=== PATIENT | female | born 1935 | race Caucasian/White ===

== ENCOUNTER 2022-02-27 02:35 | Emergency (ER) | payer OTHER, BC ==
[~2022-02-27] VITALS: Ht 165.1 cm; Wt 44.9 kg
[2022-02-27 02:41] VITALS: BP 167/65
--- NOTE | 2022-02-27 02:42 | NUR ---
FELISHA LALA. TAKEN TO BED 1
[2022-02-27] MEDS ORDERED: NACL 0.9% 1,000 ML IV ONE (02:50)
[2022-02-27] MEDS ORDERED: ONDANSETRON 4 MG ODT PO ONE (02:50)
--- NOTE | 2022-02-27 02:54 | NUR ---
CONTACT INFO FOR PT BRISA AYALA PROVIDED
--- NOTE | 2022-02-27 02:55 | NUR ---
Patient lying in bed, A/Ox4, chest rise and fall symmetrical, no s/s of distress. Addendum: 02/27/22 at 0628 by [email or web address] Patient lying in bed, A/Ox4, chest rise and fall symmetrical, no s/s of distress, patient on monitor.
--- NOTE | 2022-02-27 03:07 | NUR ---
Dr. Melvin examining patient.
[2022-02-27 03:30] LABS: BASOPHILS # (AUTO) 0.1 K/uL (0.00-0.22); BASOPHILS % (AUTO) 0.8 % (0.0-2.0); EOSINOPHILS # (AUTO) 0.1 K/uL (0-0.4); HEMATOCRIT 34.7 % (36-48); HEMOGLOBIN 11.4 g/dL (12.0-16.0); LYMPHOCYTES % (AUTO) 15.3 % (20.5-51.1); MEAN CORPUSCULAR HEMOGLOBIN 30 pg (27-31); MEAN CORPUSCULAR HGB CONC 33 g/dL (33-37); MEAN CORPUSCULAR VOLUME 91.9 fL (80-94); MONOCYTES # (AUTO) 0.6 K/uL (0.8-1.0); MONOCYTES % (AUTO) 8.3 % (1.7-9.3); NEUTROPHILS # (AUTO) 4.9 K/uL (1.8-7.7); NEUTROPHILS % (AUTO) 73.6 % (42.2-75.2); PLATELET COUNT (AUTO) 271 K/uL (140-450); RED BLOOD CELL COUNT(AUTO) 3.78 MIL/uL (4.20-5.40); RED CELL DISTRIBUTION WIDTH 13.6 % (11.6-13.7); WHITE BLOOD COUNT (AUTO) 6.7 K/uL (4.8-10.8)
--- NOTE | 2022-02-27 03:39 | NUR ---
X-Ray at bedside.
[2022-02-27 03:54] LABS: ALBUMIN 3.2 g/dL (3.4-5.0); ASPARTATE AMINOTRANSFERASE 28 U/L (15-37); CARBON DIOXIDE 27.4 mmol/L (21-32); CHLORIDE 106 mmol/L (98-107); CREATININE 0.8 mg/dL (0.6-1.3); GLUCOSE 138 mg/dL (74-106); POTASSIUM 3.4 mmol/L (3.5-5.1); SODIUM SERUM 142 mmol/L (136-145); TOTAL BILIRUBIN 0.3 mg/dL (0.0-1.0); UREA NITROGEN, BLOOD 18 mg/dL (7-18)
--- NOTE | 2022-02-27 04:15 | NUR ---
Patient lying in bed, A/Ox4, chest rise and fall symmetrical, no s/s of distress. Addendum: 02/27/22 at 0628 by [email or web address] Patient lying in bed, A/Ox4, chest rise and fall symmetrical, no s/s of distress, patient on monitor.
[2022-02-27 04:58] LABS: APPEARANCE,URINE CLEAR (CLEAR); BILIRUBIN,URINE NEGATIVE (NEGATIVE); BLOOD, URINE NEGATIVE (NEGATIVE); COLOR,URINE YELLOW (YELLOW); LEUKOCYTE ESTERASE ,URINE NEGATIVE (NEGATIVE); NITRITE, URINE NEGATIVE (NEGATIVE); UGLUCOSE NEGATIVE (NEGATIVE)
--- NOTE | 2022-02-27 05:18 | NUR ---
Dr. Melvin examining patient.
[2022-02-27] MEDS ORDERED: MECLIZINE 25 MG TAB PO ONE (05:20)
--- NOTE | 2022-02-27 06:22 | NUR ---
Patient lying in bed, A/Ox4, chest rise and fall symmetrical, no s/s of distress. Addendum: 02/27/22 at 0628 by [email or web address] Patient lying in bed, A/Ox4, chest rise and fall symmetrical, no s/s of distress, patient on monitor.
--- NOTE | 2022-02-27 07:15 | NUR ---
Change of shift report given to AM shift nurse Guerda RN. AM shift nurse Guerda RN verbalized understanding of report, no further questions.
--- NOTE | 2022-02-27 07:40 | NUR ---
AYALA ROBERTS (son) [phone] Number no longer in service [phone] pt son states he will be coming to pick her up, informed to bring shoes and extra pair of pants. per facility, pt has hx of dementia and is unable to pick her up. per son, he is sole caregiver, report given to Aya at facility and son.
[2022-02-27 08:27] VITALS: BP 142/54
--- NOTE | 2022-02-27 08:33 | NUR ---
Patient discharged with v/s stable. Written and verbal after care instructions given and explained. Patient verbalized understanding. Wheel Chair Assisted with son to car. All questions addressed prior to discharge. Advised to follow up with PMD. labs and copy of imaging given
--- NOTE | 2022-02-27 08:40 | NUR ---
pt son made aware pf iv that was left in place, asked to return to facility for removal at this time. son states he will come back for removal at this time.
== END 2022-02-27 08:25 | disposition home or self-care (01) ==
LOC: MED 02:35
DX: R53.1 Weakness (principal); Z20.822 Contact with and (suspected) exposure to COVID-19; R42 Dizziness and giddiness; R11.2 Nausea with vomiting, unspecified
CPT/HCPCS: 36415; 70450; 71045; 80053; 81003; 83880; 84484; 85025; 87426; 87804; 93005; 96360; 99285; J7030; J8597; Q0092; Q0162